=== PATIENT | female | born 1945 | race Hispanic/Latino ===

== ENCOUNTER 2016-11-25 09:19 | Observation (INO) | payer MEDICARE, OTHER ==
[2016-11-25] MEDS ORDERED: Iohexol 240 (50 ml) PO ONE (09:35)
[2016-11-25] MEDS ORDERED: Sodium Chloride 0.9% 500 ML IV ONE (09:38)
--- NOTE | 2016-11-25 09:42 | ED PDOC ---
HPI: Abdomen Time Seen by Provider: 11/25/16 09:26 Chief Complaint (Nursing): Abdominal Pain History Per: Patient History/Exam Limitations: no limitations Onset/Duration Of Symptoms: Days (2), Gradual Current Symptoms Are (Timing): Still Present Severity: Moderate Location Of Pain/Discomfort: Diffuse Quality Of Discomfort: Dull, Aching Associated Symptoms: Fever, Chills, Nausea, Vomiting. denies: Diarrhea, Back Pain, Chest Pain, Constipation, Urinary Symptoms Exacerbating Factors: None Alleviating Factors: None Additional History Per: Patient Additional Complaint(s): no travel or sick contacts Past Medical History Reviewed: Historical Data, Nursing Documentation, Vital Signs Vital Signs: Last Vital Signs Temp 100.1 F H 11/25/16 17:05 Pulse 85 11/25/16 17:05 Resp 16 11/25/16 17:05 BP 128/51 L 11/25/16 17:05 Pulse Ox 96 11/25/16 17:05 - Medical History PMH: Bipolar Disorder Denies: Diabetes, HTN, Hypercholesterolemia - Family History Family History: States: Unknown Family Hx - Living Arrangements Living Arrangements: With Family - Social History Current smoker - smoking cessation education provided: No - Home Medications Home Medications: Ambulatory Orders Medication Instructions Recorded No Known Home Med 11/25/16 - Allergies Allergies/Adverse Reactions: Allergies Allergy/AdvReac Type Severity Reaction Status Date / Time No Known Allergies Allergy Verified 01/29/16 08:26 Review of Systems ROS Statement: Except As Marked, All Systems Reviewed And Found Negative Constitutional: Positive for: Fever Cardiovascular: Negative for: Chest Pain, Palpitations Respiratory: Negative for: Cough, Shortness of Breath Gastrointestinal: Positive for: Nausea, Vomiting, Abdominal Pain. Negative for : Diarrhea Genitourinary Female: Negative for: Dysuria Musculoskeletal: Negative for: Neck Pain Skin: Negative for: Rash Neurological: Negative for: Weakness, Numbness Physical Exam - Reviewed Nursing Documentation Reviewed: Yes Vital Signs Reviewed: Yes - Physical Exam Appears: Positive for: Well, Uncomfortable Head Exam: Positive for: ATRAUMATIC, NORMAL INSPECTION, NORMOCEPHALIC Skin: Positive for: Normal Color, Warm, Dry. Negative for: Rash Eye Exam: Positive for: Normal appearance, EOMI, PERRL ENT: Positive for: Pharynx Is (clear,mmm) Neck: Positive for: Normal, Painless ROM, Supple Cardiovascular/Chest: Positive for: Regular Rate, Rhythm, Chest Non Tender. Negative for: Edema, Gallop, Murmur, Bradycardia, Tachycardia Respiratory: Positive for: Normal Breath Sounds. Negative for: Decreased Breath Sounds, Accessory Muscle Use, Crackles, Rales, Rhonchi, Stridor, Wheezing Pulses-Radial (L): 2+ Pulses-Radial (R): 2+ Gastrointestinal/Abdominal: Positive for: Normal Exam, Bowel Sounds, Soft. Negative for: Tenderness Back: Positive for: Normal Inspection. Negative for: L CVA Tenderness, R CVA Tenderness Extremity: Positive for: Normal ROM. Negative for: Tenderness, Pedal Edema Neurologic/Psych: Positive for: Alert, manager environmental health II-XII, Oriented. Negative for: Motor/Sensory Deficits - Laboratory Results Result Diagrams: 11/25/16 10:10 11/25/16 10:10 - ECG ECG: Positive for: Interpreted By Me ECG Rhythm: Positive for: Normal QRS, Normal ST Segment, Sinus Rhythm, ST/T Changes (mild in v3) O2 Sat by Pulse Oximetry: 98 Pulse Ox Interpretation: Normal - Radiology X-Ray: Interpreted by Me X-Ray Interpretation: No Acute Disease - Progress ED Course And Treament: ct scan unremarkable pt still frost nausea will admit for intractable vomiting likely viral as no source for fever Re-evaluation Time: 18:10 Condition: Unchanged Disposition - Clinical Impression Clinical Impression: Gastroenteritis, Intractable vomiting with nausea - Patient ED Disposition Is Patient to be Admitted: Yes Counseled Patient/Family Regarding: Studies Performed, Diagnosis, Need For Followup - Disposition Disposition Time: 18:11 Condition: STABLE - Pt Status Changed To: Hospital Disposition Of: Observation - POA Present On Arrival: None
[2016-11-25] MEDS ORDERED: Iohexol 240 (50 ml) ONE (10:19)
[2016-11-25 10:31] LABS: BASO % 0.2 % (0.0-2.0); HEMATOCRIT 42.2 % (34.0-47.0); LYMPH # 0.5 K/uL (1.0-4.3); LYMPH % 3.2 % (20.0-40.0); MEAN CORPUSCULAR HEMOGLOBIN 29.8 pg (27.0-31.0); MEAN CORPUSCULAR HGB CONC 33.5 g/dL (33.0-37.0); MEAN PLATELET VOLUME 9.4 fl (7.2-11.7); MONO # 1.4 K/uL (0.0-0.8); MONO % 9.1 % (0.0-10.0); NEUT # 13.2 K/uL (1.8-7.0); NEUT % 87.5 % (50.0-75.0); NRBC % 0.1 % (0.0-0.0); PLATELET COUNT 159 K/uL (130-400); RED CELL DISTRIBUTION WIDTH 13.7 % (11.5-14.5)
[2016-11-25 10:56] LABS: ALKALINE PHOSPHATASE 88 U/L (38-126); ALT/SGPT 30 U/L (9-52); AMYLASE 107 U/L (30-110); AST/SGOT 21 U/L (14-36); BLOOD UREA NITROGEN 12 mg/dl (7-17); CALCIUM 8.6 mg/dL (8.4-10.2); CARBON DIOXIDE 28 mmol/L (22-30); CHLORIDE 101 mmol/L (98-107); GFR AFRICAN-AMERICAN > 60; GLUCOSE,RANDOM 116 mg/dL (65-105); LIPASE 68 U/L (23-300); POTASSIUM 3.2 MMOL/L (3.6-5.0); SODIUM 143 mmol/l (132-148); TOTAL PROTEIN 6.9 G/DL (6.3-8.2)
[2016-11-25 12:01] LABS: NEUTROPHIL 89 % (42-75); TOTAL CELLS COUNTED 100
--- NOTE | 2016-11-25 12:11 | RAD ---
HISTORY: fever COMPARISON: Thoracic and lumbar radiographs performed 11/15/14 TECHNIQUE: Chest, one view. FINDINGS: Examination limited by habitus. LUNGS: No focal consolidation. Please note that chest x-ray has limited sensitivity for the detection of pulmonary masses. PLEURA: No significant pleural effusion identified. No definite pneumothorax . CARDIOVASCULAR: Heart size appears top normal. Prominence of the mediastinum of uncertain etiology ; considerations include tortuous vasculature exaggerated by patient obliquity, however alternatives including adenopathy are not excluded. OSSEOUS STRUCTURES: No acute osseous abnormality identified. VISUALIZED UPPER ABDOMEN: Unremarkable. OTHER FINDINGS: None. IMPRESSION: No focal consolidation, significant pleural effusion, or definite pneumothorax identified. Prominent mediastinum as above. Case discussed with Dr. Watters on 11/25/16 at 12:08 p.m..
[2016-11-25 13:50] LABS: RBC URINE 3 /hpf (0-3); URINE BACTERIA OCC (<OCC); URINE BILIRUBIN NEGATIVE (NEGATIVE); URINE BLOOD NEGATIVE (NEGATIVE); URINE COLOR AMBER (YELLOW); URINE GLUCOSE (UA) NEG (Normal); URINE KETONE NEGATIVE (NEGATIVE); URINE LEUKOCYTE ESTERASE NEG Leu/uL (Negative); URINE PROTEIN 30 mg/dL (NEGATIVE); WBC URINE 2 /hpf (0-5)
[2016-11-25] MEDS ORDERED: Sodium Chloride 0.9% 50 ML IV ONE (14:07)
[2016-11-25] MEDS ORDERED: Iodixanol 320 MG/ML 100 ML BOTTLE IV ONE (14:07)
--- NOTE | 2016-11-25 15:08 | CT ---
CT chest, abdomen, and pelvis with IV contrast Indication: Chest pain, rule out dissection Technique: Contiguous axial images of the chest, abdomen, and pelvis. Coronal and Sagittal reformats generated and reviewed. This CT exam was performed using 1 or more of the following dose reduction techniques: Automated exposure control, adjustment of the MAA and/or kV according to patient size, and/or use of iterative reconstruction technique. Oral contrast was administered. 95 mL Visipaque 320 Radiation dose: Total exam DLP = 1245.63 MGy-cm. Comparison: Chest x-ray performed the same day. Findings: Visualized portions of the inferior thyroid gland appear unremarkable. The mediastinal and hilar vascular structures appear within normal limits. The heart appears within normal limits of size. Minimal scattered atelectasis. No focal consolidation. No pleural effusion. No pneumothorax. No suspicious pulmonary nodules measuring greater than 5 mm. Small to moderate hiatal hernia. Cholecystectomy. Hypoattenuation of the liver compatible with hepatic steatosis. The kidneys enhance symmetrically. No hydronephrosis or obstructing calculus identified. The spleen, pancreas, and adrenal glands appear unremarkable. The stomach is nondistended. The bowel loops appear within normal limits of caliber without evidence of intestinal obstruction. Diverticulosis without CT evidence of acute diverticulitis. There is no definite free air. Small fat containing umbilical hernia. Osseous demineralization. Degenerative changes. Impression: Small to moderate hiatal hernia. Diverticulosis without CT evidence of acute diverticulitis. Hepatic steatosis. Cholecystectomy.
--- NOTE | 2016-11-25 16:09 | CARD ---
APPROVED REPORT EKG Measurement Heart [id number] <Conclusion> Normal sinus rhythm Nonspecific ST and T wave abnormality Abnormal ECG
[2016-11-25] MEDS: Enoxaparin 40 mg Syringe SC SCH (20:50)
--- NOTE | 2016-11-25 22:38 | CP.PCM.HP ---
History of Present Illness - History of Present Illness History of Present Illness: Hospitalist Admission H&P (Patient was seen at 6:15 PM 11/25/16 ER Bed #22) PMD: Dr. Ayala CODE STATUS: FULL CODE. NO advance directive/living will. Designates her Ede [phone] as her Health Care Proxy. CHIEF COMPLAINT: Nausea and vomiting with adominal pain 71 year old female who presents today to [facility] ER with complaints of Nausea/ Vomiting and Abdominal Pain. Yesterday afternoon roughly 4 hours after having lasagna followed by ceasar cake (which consisted of a cake with hard boiled eggs hidden inside) she started to experience nausea but no vomiting. This persisted throughout the night and prevented her from getting any sleep. Then at 7 AM this morning the nausea was at its worse and she vomited up yellow material. Because of this she had her call EMS. While waiting for EMS to arrive, she vomited up yellow material again that was followed by generalized abdominal pain that she described as burning sensation associated with dizziness. Currently she is still (+) Nauseous despite being given Zofran in the ER, (+) Dizziness described as an unsteadiness on her feet, NO abdominal pain, NO chest pain, NO palpitations, NO SOB/Cough/Wheezing, NO d/c, NO burning/pain with urination, (+) Soreness in the throat from vomiting, NO dysphagia/odynophagia, NO headaches, NO new changes in vision/eye pain/loss of vision, NO new changes in hearing/ear pain/tinnitus, NO rashes, (+) Edema: she states that she has chronic edema of the bilateral legs for which she takes Lasix, NO recent travel , NO sick contacts PMHx: Chronic Leg Edema PSHx: Right Foot Hammer Toe Surgery ALL: NKDA or Food Allergeis Medications: Lasix 20 mg PO every other day for the Chronic Leg Edema Social Hx: Retired Lunch Lady, NO tobacco, NO alcohol, NO illicit drugs Family Hx: Mom (DM 2), Dad (Unspecified [place]), Sister (DM 2) Present on Admission - Present on Admission Any Indicators Present on Admission: Yes History of DVT/PE: No History of Uncontrolled Diabetes: No Urinary Catheter: No Decubitus Ulcer Present: No Review of Systems - Review of Systems Review of Systems: SEE HPI Past Patient History - Past Medical History & Family History Pertinent Family History: SEE HPI - Past Social History Smoking Status: Never Smoked - CARDIAC Hx Hypercholesterolemia: No Hx Hypertension: No - PSYCHIATRIC Hx Psychophysiologic Disorder: Yes - SURGICAL HISTORY Other/Comment: rt foot sx for hammer toes - ANESTHESIA Hx Anesthesia: Yes Hx Anesthesia Reactions: No Meds Allergies/Adverse Reactions: Allergies Allergy/AdvReac Type Severity Reaction Status Date / Time No Known Allergies Allergy Verified 01/29/16 08:26 Physical Exam - Constitutional Appears: Non-toxic, No Acute Distress - Head Exam Head Exam: ATRAUMATIC, NORMAL INSPECTION, NORMOCEPHALIC - Eye Exam Eye Exam: EOMI, Normal appearance, PERRL Pupil Exam: NORMAL ACCOMODATION, PERRL - ENT Exam ENT Exam: Mucous Membranes Moist, Normal Exam, Normal External Ear Exam, Normal Oropharynx - Neck Exam Neck exam: Positive for: Normal Inspection Additional comments: NO LYMPHADENOPATHY NO THYROMEGALY - Respiratory Exam Respiratory Exam: Clear to Auscultation Bilateral, NORMAL BREATHING PATTERN Additional comments: NO R/R/W - Cardiovascular Exam Cardiovascular Exam: REGULAR RHYTHM, +S1, +S2 Additional comments: NO M/R/G - GI/Abdominal Exam Additional comments: BS X 4, SOFT, NT, CENTRAL OBESITY, NO HSM, NO GUARDING/REBOUND TENDERNESS - Extremities Exam Additional comments: PULSES ARE STRONG AND EQUAL CAPILLARY REFILL IS 2 SECONDS NONPITTING EDEMA OF THE FEET AND LEGS BILATERALY FEET ONYCHOMYCOSIS/MALODOROUS - Neurological Exam Neurological exam: Alert, CN II-XII Intact, Oriented x3 - Psychiatric Exam Psychiatric exam: Normal Affect, Normal Mood Results - Vital Signs Recent Vital Signs: Last Vital Signs Temp 98.5 F 11/25/16 22:07 Pulse 79 11/25/16 22:07 Resp 20 11/25/16 22:07 BP 100/63 11/25/16 22:07 Pulse Ox 98 11/25/16 22:07 - Labs Result Diagrams: 11/25/16 10:10 11/25/16 10:10 Assessment & Plan (1) Intractable vomiting with nausea Assessment and Plan: Place on observation in the medical/surgical unit Zofran 4 mg IV Q6H PRN N/V Clear Liquids tonight Full Liquids for breakfast 11/26/16 Regular Diet for lunch 11/26/16 Protonix 40 mg IV 1x/day Discharge to home if tolerates Regular Diet for lunch 11/26/16 CT Abdomen/Pelvis/Chest 11/25/16: Small to moderate hiatal hernia, diverticulosis without CT evidence of diverticulitis, Hepatic Steatosis CXR 11/25/16: NO active disease with prominent mediastinum EKG 11/25/16: NSR at 84 bpm Status: Acute (2) Chronic edema Assessment and Plan: Lasix 20 mg PO once every other day Status: Chronic (3) Hepatic steatosis Assessment and Plan: Dietary Consult for low fat diet Status: Chronic (4) Prophylactic measure Assessment and Plan: Protonix 40 mg IV 1x/day Lovenox 40 mg SQ 1x/day Status: Acute
[2016-11-25] MEDS ORDERED: Potassium Chloride 20 mEq ER Tab PO ONE (22:49)
[2016-11-26 05:37] LABS: BASO # 0.1 K/uL (0.0-0.2); BASO % 0.5 % (0.0-2.0); EOS % 0.1 % (0.0-4.0); HEMATOCRIT 40.4 % (34.0-47.0); LYMPH % 4.9 % (20.0-40.0); MEAN CELL VOLUME 89.7 fl (81.0-99.0); MEAN CORPUSCULAR HEMOGLOBIN 30.2 pg (27.0-31.0); MEAN CORPUSCULAR HGB CONC 33.7 g/dL (33.0-37.0); MEAN PLATELET VOLUME 10.1 fl (7.2-11.7); MONO % 9.8 % (0.0-10.0); NEUT # 17.5 K/uL (1.8-7.0); NEUT % 84.7 % (50.0-75.0); RED CELL DISTRIBUTION WIDTH 13.8 % (11.5-14.5); WHITE BLOOD COUNT 20.7 K/uL (4.8-10.8)
[2016-11-26 05:51] LABS: ALB/GLOB RATIO 0.9 (1.0-2.1); ALKALINE PHOSPHATASE 89 U/L (38-126); ALT/SGPT 21 U/L (9-52); AST/SGOT 23 U/L (14-36); BILIRUBIN,TOTAL 1.2 mg/dl (0.2-1.3); BLOOD UREA NITROGEN 12 mg/dl (7-17); CALCIUM 8.5 mg/dL (8.4-10.2); CARBON DIOXIDE 28 mmol/L (22-30); CHLORIDE 101 mmol/L (98-107); GFR AFRICAN-AMERICAN > 60; GLUCOSE,RANDOM 105 mg/dL (65-105); MAGNESIUM 2.1 MG/DL (1.6-2.3); PHOSPHOROUS 3.1 mg/dl (2.5-4.5); POTASSIUM 3.4 MMOL/L (3.6-5.0); SODIUM 141 mmol/l (132-148); TOTAL PROTEIN 6.4 G/DL (6.3-8.2)
[2016-11-26] MEDS: Enoxaparin 40 mg Syringe SC SCH (09:54)
[2016-11-26] MEDS: metroNIDAZOLE 500mg/100ml NS 100 ML IVPB SCH ×2 (10:00→17:41)
[2016-11-26] MEDS: Potassium CL 10mEq/100ml 100 ML IVPB SCH ×2 (10:00→11:17)
[2016-11-26] MEDS: Ciprofloxacin 400mg/200ml D5W 200 ML IVPB SCH ×2 (10:01→20:59)
--- NOTE | 2016-11-26 13:12 | CP.PCM.PN ---
Subjective - Date & Time of Evaluation Date of Evaluation: 11/26/16 Time of Evaluation: 13:00 - Subjective Subjective: Pt was febrile last night no N/V however started having diarrhea no CP no SOB no abd pain Objective - Vital Signs/Intake and Output Vital Signs (last 24 hours): Temp Pulse Resp BP Pulse Ox 98.6 F 77 20 128/73 94 L 11/26/16 08:22 11/26/16 08:22 11/26/16 08:22 11/26/16 09:54 11/26/16 08:22 - Medications Medications: Current Medications Acetaminophen (Tylenol 325mg Tab) 650 mg PO Q6 PRN PRN Reason: Fever >100.4 F Last Admin: 11/25/16 20:50 Dose: 650 mg Enoxaparin Sodium (Lovenox) 40 mg SC DAILY [facility] PRN Reason: Protocol Last Admin: 11/26/16 09:54 Dose: 40 mg Furosemide (Lasix) 20 mg PO DAILY [facility] Last Admin: 11/26/16 09:54 Dose: 20 mg Ciprofloxacin (Cipro 400mg/200ml Dsw) 200 mls @ 200 mls/hr IVPB Q12 [facility] Last Admin: 11/26/16 10:01 Dose: 200 mls/hr Metronidazole (Flagyl 500mg/100ml Ns) 100 mls @ 100 mls/hr IVPB Q8 [facility] Last Admin: 11/26/16 10:00 Dose: 100 mls/hr Ondansetron HCl (Zofran Inj) 4 mg IVP Q6 PRN PRN Reason: Nausea/Vomiting Pantoprazole Sodium (Protonix Inj) 40 mg IVP DAILY [facility] Last Admin: 11/26/16 09:59 Dose: 40 mg - Constitutional Appears: No Acute Distress - Head Exam Head Exam: NORMAL INSPECTION, NORMOCEPHALIC - Eye Exam Eye Exam: Normal appearance Pupil Exam: NORMAL ACCOMODATION - ENT Exam ENT Exam: Mucous Membranes Moist, Normal External Ear Exam - Neck Exam Neck Exam: Full ROM. absent: Meningismus - Respiratory Exam Respiratory Exam: NORMAL BREATHING PATTERN. absent: Respiratory Distress - Cardiovascular Exam Cardiovascular Exam: REGULAR RHYTHM, +S1, +S2 - GI/Abdominal Exam GI & Abdominal Exam: Soft, Normal Bowel Sounds. absent: Tenderness - Extremities Exam Extremities Exam: Full ROM. absent: Calf Tenderness, Normal Capillary Refill, Pedal Edema - Back Exam Back Exam: absent: CVA tenderness (L), CVA tenderness (R), paraspinal tenderness , vertebral tenderness - Neurological Exam Neurological Exam: Alert, CN II-XII Intact, Oriented x3 - Psychiatric Exam Psychiatric exam: Normal Affect, Normal Mood - Skin Skin Exam: Dry, Normal Color, Warm Assessment and Plan - Assessment and Plan (Free Text) Assessment: 71 year old female who presented to [facility] ER with complaints of Nausea/Vomiting and Abdominal Pain roughly 4 hours after having lasagna followed by ceasar lacey. Now started having diarrhea (1) Intractable vomiting with nausea and Diarrhea pron Acute Gastroenteritis Assessment and Plan: will admit since pt now started with diarrhea , vomiting improved Zofran 4 mg IV Q6H PRN N/V Full Liquids for breakfast 11/26/16 Regular Diet for lunch 11/26/16 Protonix 40 mg IV 1x/day CT Abdomen/Pelvis/Chest 11/25/16: Small to moderate hiatal hernia, diverticulosis without CT evidence of diverticulitis, Hepatic Steatosis CXR 11/25/16: NO active disease with prominent mediastinum EKG 11/25/16: NSR at 84 bpm Stool c/s , C diff, WBC, O/O IVF hydration KCl for hypokalemia leukocytosis 20 K- start IV Cipro and Flagyl Status: Acute (2) Chronic edema Assessment and Plan: Lasix 20 mg PO once every other day Status: Chronic (3) Hepatic steatosis Assessment and Plan: Dietary Consult for low fat diet Status: Chronic (4) Prophylactic measure Assessment and Plan: Protonix 40 mg IV 1x/day Lovenox 40 mg SQ 1x/day Status: Acute 5. Hypokalemia - KCl in IV and PO
[2016-11-26] MEDS: Vancomycin 500 mg (Oral/Rectal USE) PO SCH (21:00)
[2016-11-26] MEDS: Benzocaine/Menthol (Cepacol) Lozenge PO PRN (21:52)
[2016-11-27] MEDS: Vancomycin 500 mg (Oral/Rectal USE) PO SCH ×3 (01:10→17:11)
[2016-11-27] MEDS: metroNIDAZOLE 500mg/100ml NS 100 ML IVPB SCH ×4 (01:12→23:59)
[2016-11-27 08:32] LABS: BASO # 0.1 K/uL (0.0-0.2); BASO % 0.4 % (0.0-2.0); EOS # 0.1 K/uL (0.0-0.7); EOS % 0.9 % (0.0-4.0); HEMATOCRIT 37.3 % (34.0-47.0); LYMPH # 0.9 K/uL (1.0-4.3); LYMPH % 6.2 % (20.0-40.0); MEAN CORPUSCULAR HEMOGLOBIN 30.4 pg (27.0-31.0); MEAN CORPUSCULAR HGB CONC 34.2 g/dL (33.0-37.0); MEAN PLATELET VOLUME 9.2 fl (7.2-11.7); MONO # 1.3 K/uL (0.0-0.8); NEUT # 12.6 K/uL (1.8-7.0); NEUT % 83.5 % (50.0-75.0); RED CELL DISTRIBUTION WIDTH 13.8 % (11.5-14.5); WHITE BLOOD COUNT 15.1 K/uL (4.8-10.8)
[2016-11-27 08:49] LABS: BLOOD UREA NITROGEN 8 mg/dl (7-17); CALCIUM 8.6 mg/dL (8.4-10.2); CARBON DIOXIDE 27 mmol/L (22-30); CHLORIDE 105 mmol/L (98-107); GFR AFRICAN-AMERICAN > 60; GLUCOSE,RANDOM 104 mg/dL (65-105); POTASSIUM 3.5 MMOL/L (3.6-5.0); SODIUM 144 mmol/l (132-148)
[2016-11-27] MEDS: Ciprofloxacin 400mg/200ml D5W 200 ML IVPB SCH ×2 (09:02→20:37)
[2016-11-27] MEDS: Enoxaparin 40 mg Syringe SC SCH (09:03)
--- NOTE | 2016-11-27 14:17 | CP.PCM.PN ---
Subjective - Date & Time of Evaluation Date of Evaluation: 11/27/16 Time of Evaluation: 13:30 - Subjective Subjective: No fever today no nausea /vonitng Had diarrhea this am but less than yesterday Tolerated Regular diet denies CP no SOB no abd pain Objective - Vital Signs/Intake and Output Vital Signs (last 24 hours): Temp Pulse Resp BP Pulse Ox 98.6 F 83 20 121/76 94 L 11/27/16 08:22 11/27/16 11:47 11/27/16 08:22 11/27/16 09:02 11/27/16 11:47 - Medications Medications: Current Medications Acetaminophen (Tylenol 325mg Tab) 650 mg PO Q6 PRN PRN Reason: Fever >100.4 F Last Admin: 11/25/16 20:50 Dose: 650 mg Benzocaine/Menthol (Cepacol Sore Throat) 1 reina PO Q2 PRN PRN Reason: Sore Throat Last Admin: 11/26/16 21:52 Dose: 1 reina Enoxaparin Sodium (Lovenox) 40 mg SC DAILY [facility] PRN Reason: Protocol Last Admin: 11/27/16 09:03 Dose: 40 mg Furosemide (Lasix) 20 mg PO DAILY [facility] Last Admin: 11/27/16 09:02 Dose: 20 mg Ciprofloxacin (Cipro 400mg/200ml Dsw) 200 mls @ 200 mls/hr IVPB Q12 [facility] Last Admin: 11/27/16 09:02 Dose: 200 mls/hr Metronidazole (Flagyl 500mg/100ml Ns) 100 mls @ 100 mls/hr IVPB Q8 [facility] Last Admin: 11/27/16 10:58 Dose: 100 mls/hr Ondansetron HCl (Zofran Inj) 4 mg IVP Q6 PRN PRN Reason: Nausea/Vomiting Pantoprazole Sodium (Protonix Inj) 40 mg IVP DAILY [facility] Last Admin: 11/27/16 09:04 Dose: 40 mg Vancomycin HCl (Vancocin (Oral/Rectal Use)) 125 mg PO Q8 [facility] Last Admin: 11/27/16 09:05 Dose: 125 mg - Labs Labs: 11/27/16 08:21 11/27/16 08:21 PE: - Constitutional Appears: No Acute Distress - Head Exam Head Exam: NORMAL INSPECTION, NORMOCEPHALIC - Eye Exam Eye Exam: Normal appearance Pupil Exam: NORMAL ACCOMODATION - ENT Exam ENT Exam: Mucous Membranes Moist, Normal External Ear Exam - Neck Exam Neck Exam: Full ROM. absent: Meningismus - Respiratory Exam Respiratory Exam: NORMAL BREATHING PATTERN. absent: Respiratory Distress - Cardiovascular Exam Cardiovascular Exam: REGULAR RHYTHM, +S1, +S2 - GI/Abdominal Exam GI & Abdominal Exam: Soft, Normal Bowel Sounds. absent: Tenderness - Extremities Exam Extremities Exam: Full ROM. absent: Calf Tenderness, Normal Capillary Refill, Pedal Edema - Back Exam Back Exam: absent: CVA tenderness (L), CVA tenderness (R), paraspinal tenderness , vertebral tenderness - Neurological Exam Neurological Exam: Alert, CN II-XII Intact, Oriented x3 - Psychiatric Exam Psychiatric exam: Normal Affect, Normal Mood - Skin Skin Exam: Dry, Normal Color, Warm Assessment and Plan - Assessment and Plan (Free Text) Assessment: 71 year old female who presented to [facility] ER with complaints of Nausea/Vomiting and Abdominal Pain roughly 4 hours after having lasagna followed by ceasar lacey. Started having fever and diarrhea on 11/26 (1) Intractable vomiting with nausea and Diarrhea prob Acute Gastroenteritis Still with diarrhea this am however N/V resolved Zofran 4 mg IV Q6H PRN N/V Full Liquids for breakfast 11/26/16 Regular Diet for lunch 11/26/16- tolerating PO diet Protonix 40 mg IV 1x/day CT Abdomen/Pelvis/Chest 11/25/16: Small to moderate hiatal hernia, diverticulosis without CT evidence of diverticulitis, Hepatic Steatosis CXR 11/25/16: NO active disease with prominent mediastinum EKG 11/25/16: NSR at 84 bpm Stool c/s : pending , C diff : negative, Stool, WBC : negative IVF hydration KCl for hypokalemia leukocytosis 20 K- started IV Cipro and Flagyl - WBC ct =15K today Status: Acute (2) Chronic edema Assessment and Plan: Lasix 20 mg PO once every other day Status: Chronic (3) Hepatic steatosis Assessment and Plan: Dietary Consult for low fat diet Status: Chronic (4) Prophylactic measure Assessment and Plan: Protonix 40 mg IV 1x/day Lovenox 40 mg SQ 1x/day Status: Acute 5. Hypokalemia - KCl in IV and PO
[2016-11-27] MEDS: Benzocaine/Menthol (Cepacol) Lozenge PO PRN (17:13)
[2016-11-28 07:31] LABS: BASO # 0.1 K/uL (0.0-0.2); BASO % 0.6 % (0.0-2.0); EOS # 0.3 K/uL (0.0-0.7); EOS % 3.6 % (0.0-4.0); HEMATOCRIT 37.2 % (34.0-47.0); LYMPH # 1.3 K/uL (1.0-4.3); LYMPH % 13.7 % (20.0-40.0); MEAN CELL VOLUME 89.2 fl (81.0-99.0); MEAN CORPUSCULAR HEMOGLOBIN 30.1 pg (27.0-31.0); MEAN CORPUSCULAR HGB CONC 33.7 g/dL (33.0-37.0); MEAN PLATELET VOLUME 9.9 fl (7.2-11.7); MONO % 10.7 % (0.0-10.0); NEUT # 6.8 K/uL (1.8-7.0); NEUT % 71.4 % (50.0-75.0); RED CELL DISTRIBUTION WIDTH 13.8 % (11.5-14.5); WHITE BLOOD COUNT 9.6 K/uL (4.8-10.8)
[2016-11-28 07:34] LABS: BLOOD UREA NITROGEN 9 mg/dl (7-17); CALCIUM 8.2 mg/dL (8.4-10.2); CARBON DIOXIDE 24 mmol/L (22-30); CHLORIDE 107 mmol/L (98-107); GFR AFRICAN-AMERICAN > 60; GLUCOSE,RANDOM 90 mg/dL (65-105); POTASSIUM 3.3 MMOL/L (3.6-5.0); SODIUM 144 mmol/l (132-148)
[2016-11-28 08:13] VITALS: RESP 20
[2016-11-28] MEDS: metroNIDAZOLE 500mg/100ml NS 100 ML IVPB SCH (08:52)
[2016-11-28] MEDS: Enoxaparin 40 mg Syringe SC SCH (08:53)
[2016-11-28] MEDS: Vancomycin 500 mg (Oral/Rectal USE) PO SCH ×2 (08:54)
[2016-11-28] MEDS: Ciprofloxacin 400mg/200ml D5W 200 ML IVPB SCH (10:07)
--- NOTE | 2016-11-28 14:58 | CP.PCM.DIS ---
Provider - Provider Date of Admission: 11/26/16 11:41 Attending physician: Donny Bran MD Primary care physician: Dr. Ayala Consults: None Time Spent in preparation of Discharge (in minutes): 40 Diagnosis - Discharge Diagnosis (1) Intractable vomiting with nausea Status: Acute (2) Chronic edema Status: Chronic (3) Hepatic steatosis Status: Chronic (4) Prophylactic measure Status: Acute Hospital Course - Lab Results Lab Results: Most Recent Lab Values WBC 9.6 K/uL (4.8-10.8) 11/28/16 06:44 RBC 4.17 Mil/uL (3.80-5.20) 11/28/16 06:44 Hgb 12.5 g/dL (12.0-16.0) 11/28/16 06:44 Hct 37.2 % (34.0-47.0) 11/28/16 06:44 MCV 89.2 fl (81.0-99.0) 11/28/16 06:44 MCH 30.1 pg (27.0-31.0) 11/28/16 06:44 MCHC 33.7 g/dL (33.0-37.0) 11/28/16 06:44 RDW 13.8 % (11.5-14.5) 11/28/16 06:44 Plt Count 172 K/uL (130-400) 11/28/16 06:44 MPV 9.9 fl (7.2-11.7) 11/28/16 06:44 Neut % (Auto) 71.4 % (50.0-75.0) 11/28/16 06:44 Lymph % (Auto) 13.7 % (20.0-40.0) L 11/28/16 06:44 Roane % (Auto) 10.7 % (0.0-10.0) H 11/28/16 06:44 Eos % (Auto) 3.6 % (0.0-4.0) 11/28/16 06:44 Baso % (Auto) 0.6 % (0.0-2.0) 11/28/16 06:44 Neut # 6.8 K/uL (1.8-7.0) 11/28/16 06:44 Lymph # 1.3 K/uL (1.0-4.3) 11/28/16 06:44 Roane # 1.0 K/uL (0.0-0.8) H 11/28/16 06:44 Eos # 0.3 K/uL (0.0-0.7) 11/28/16 06:44 Baso # 0.1 K/uL (0.0-0.2) 11/28/16 06:44 Neutrophils % (Manual) 89 % (42-75) H 11/25/16 10:10 Band Neutrophils % 2 % (0-2) 11/25/16 10:10 Lymphocytes % (Manual) 1 % (20-50) L 11/25/16 10:10 Monocytes % (Manual) 8 % (0-10) 11/25/16 10:10 Platelet Estimate Normal (NORMAL) 11/25/16 10:10 RBC Morphology Normal (NORMAL) 11/25/16 10:10 Sodium 144 mmol/l (132-148) 11/28/16 06:44 Potassium 3.3 MMOL/L (3.6-5.0) L 11/28/16 06:44 Chloride 107 mmol/L (98-107) 11/28/16 06:44 Carbon Dioxide 24 mmol/L (22-30) 11/28/16 06:44 Anion Gap 16 (10-20) 11/28/16 06:44 BUN 9 mg/dl (7-17) 11/28/16 06:44 Creatinine 0.6 mg/dL (0.7-1.2) L 11/28/16 06:44 Est GFR ( Amer) > 60 11/28/16 06:44 Est GFR (Non-Af Amer) > 60 11/28/16 06:44 Random Glucose 90 mg/dL (65-105) 11/28/16 06:44 Calcium 8.2 mg/dL (8.4-10.2) L 11/28/16 06:44 Phosphorus 3.1 mg/dl (2.5-4.5) 11/26/16 04:35 Magnesium 2.1 MG/DL (1.6-2.3) 11/26/16 04:35 Total Bilirubin 1.2 mg/dl (0.2-1.3) 11/26/16 04:35 AST 23 U/L (14-36) 11/26/16 04:35 ALT 21 U/L (9-52) 11/26/16 04:35 Alkaline Phosphatase 89 U/L (38-126) 11/26/16 04:35 Troponin I < 0.0120 ng/mL (0.00-0.120) 11/25/16 10:10 Total Protein 6.4 G/DL (6.3-8.2) 11/26/16 04:35 Albumin 3.1 g/dL (3.5-5.0) L 11/26/16 04:35 Globulin 3.3 gm/dL (2.2-3.9) 11/26/16 04:35 Albumin/Globulin Ratio 0.9 (1.0-2.1) L 11/26/16 04:35 Amylase 107 U/L (30-110) 11/25/16 10:10 Lipase 68 U/L (23-300) 11/25/16 10:10 Urine Color Shannan (YELLOW) 11/25/16 13:35 Urine Clarity Slighty-cloudy (Clear) 11/25/16 13:35 Urine pH 5.0 (5.0-8.0) 11/25/16 13:35 Ur Specific [employer] 1.023 (1.003-1.030) 11/25/16 13:35 Urine Protein 30 mg/dL (NEGATIVE) 11/25/16 13:35 Urine Glucose (UA) Neg mg/dL (Normal) 11/25/16 13:35 Urine Ketones Negative mg/dL (NEGATIVE) 11/25/16 13:35 Urine Blood Negative (NEGATIVE) 11/25/16 13:35 Urine Nitrate Negative (NEGATIVE) 11/25/16 13:35 Urine Bilirubin Negative (NEGATIVE) 11/25/16 13:35 Urine Urobilinogen 2.0 mg/dL (0.2-1.0) H 11/25/16 13:35 Ur Leukocyte Esterase Neg Cary/uL (Negative) 11/25/16 13:35 Urine RBC (Auto) 3 /hpf (0-3) 11/25/16 13:35 Urine Microscopic WBC 2 /hpf (0-5) 11/25/16 13:35 Ur Squamous Epith Cells 1 /hpf (0-5) 11/25/16 13:35 Urine Bacteria Occ (<OCC) H 11/25/16 13:35 Stool Leukocytes, Qual Negative (NEGATIVE) 11/26/16 14:22 C. difficile Ag & Toxin Negative (NEGATIVE) 11/27/16 23:00 Influenza Typ A,B (EIA) Negative for flu a/b (NEGATIVE) 11/25/16 10:20 - Hospital Course Hospital Course: 71 year old female who presented 11/25/16 to [facility] ER with complaints of Nausea/ Vomiting and Abdominal Pain. On 11/24/16 afternoon roughly 4 hours after having lasagna followed by eastranda cake (which consisted of a cake with hard boiled eggs hidden inside) she started to experience nausea but no vomiting. This persisted throughout the night and prevented her from getting any sleep. Then at 7 AM 11/25/16 morning the nausea was at its worse and she vomited up yellow material. Because of this she had her call EMS. While waiting for EMS to arrive, she vomited up yellow material again that was followed by generalized abdominal pain that she described as burning sensation associated with dizziness. She developed some diarrhea and fever during her admission. CT Abdomen/Pelvis/Chest did not show any acute pathology (hiatal hernia, diverticulosis, hepatic steatosis). Chest X ray did NO show any active disease. Blood Culture 11/25/16 is negative to date. Urine Culture 11/25/16 showed NO growth. C. diff toxin is negative. Stool Cultures/Ova and Parasite are pending. Her last fever was on 11/26/18 at 4:52 PM and has been fever free since then. She has tolerated regular diet without n/v. She still has some diarrhea with two episodes this morning that were nonbloody/nonblack. She able to take oral hydration. Vitals are stable. She stable for discharge to home to follow BRAT diet and follow up with her PMD Dr. Ayala Currently she is still Nausea and Dizziness has resolved, NO abdominal pain, NO chest pain, NO palpitations, NO SOB/Cough/Wheezing, NO d/c, NO burning/pain with urination, Soreness in the throat from vomiting has resolved, NO dysphagia/ odynophagia, NO headaches, NO new changes in vision/eye pain/loss of vision, NO new changes in hearing/ear pain/tinnitus, NO rashes, (+) Edema: she states that she has chronic edema of the bilateral legs for which she takes Lasix, Physical Exam - Constitutional Appears: Non-toxic, No Acute Distress - Head Exam Head Exam: ATRAUMATIC, NORMAL INSPECTION, NORMOCEPHALIC - Eye Exam Eye Exam: EOMI, Normal appearance, PERRL Pupil Exam: NORMAL ACCOMODATION, PERRL - ENT Exam ENT Exam: Mucous Membranes Moist, Normal Exam, Normal External Ear Exam, Normal Oropharynx - Neck Exam Neck exam: Positive for: Normal Inspection Additional comments: NO LYMPHADENOPATHY NO THYROMEGALY - Respiratory Exam Respiratory Exam: Clear to Auscultation Bilateral, NORMAL BREATHING PATTERN Additional comments: NO R/R/W - Cardiovascular Exam Cardiovascular Exam: REGULAR RHYTHM, +S1, +S2 Additional comments: NO M/R/G - GI/Abdominal Exam Additional comments: BS X 4, SOFT, NT, CENTRAL OBESITY, NO HSM, NO GUARDING/REBOUND TENDERNESS - Extremities Exam Additional comments: PULSES ARE STRONG AND EQUAL CAPILLARY REFILL IS 2 SECONDS NONPITTING EDEMA OF THE FEET AND LEGS BILATERALY FEET ONYCHOMYCOSIS/MALODOROUS - Neurological Exam Neurological exam: Alert, CN II-XII Intact, Oriented x3 - Psychiatric Exam Psychiatric exam: Normal Affect, Normal Mood Assessment and Plan: 1). Intractable Nausea/Vomiting Resolved 2). Leukocytosis Resolved Likely reactive 3). Hepatic Steatosis Will need to follow up with PMD Dr. Ayala for weight loss management 4). Chronic Leg Edema She stated that she had enough of the Lasix 20 mg PO every other day at home The following instructions were explained to the patient with present and copy of this discharge summary will be provided to her: 1). Follow a BRAT diet: bannanas, white rice, apple sauce, and toast until your bowel movements become more well formed. 2). Once your stools/bowel movements are well formed with BRAT diet, advance your diet slowly. 3). Practice good hand hygiene 4). Drink plenty of fluids 5). Follow up with your Primary Care Physician Dr. Ayala in the next 5 to 7 days. You will need to follow up the blood and stool cultures that were done for you at the hospital through Dr. Ayala's office. 6). Continue the Lasix as instructed by Dr. Ayala. Donny Bran D.O. Discharge Exam - Head Exam Head Exam: NORMAL INSPECTION, NORMOCEPHALIC Discharge Plan - Follow Up Plan Condition: STABLE Disposition: HOME/ ROUTINE
[2016-11-28 16:16] VITALS: BP 125/80; PULSE 71; TEMP 98.5; O2SAT 95
== END 2016-11-28 16:46 | disposition home health service (06) ==
LOC: H.ER 09:19 → H.ERHOLD 18:06 → H.MEDSURG1 21:50 → INTOOBSV 11-26 11:41 → OBSVTOIN 11-26 11:41 → H.MEDSURG1 11-26 15:11
PROVIDERS: ADMIT Family Medicine; ATTEND Family Medicine
DX: K52.89 Other specified noninfective gastroenteritis and colitis (principal); K76.0 Fatty (change of) liver, not elsewhere classified; E87.6 Hypokalemia; D72.828 Other elevated white blood cell count; B35.1 Tinea unguium; Q82.0 Hereditary lymphedema; E66.9 Obesity, unspecified; K57.30 Diverticulosis of large intestine without perforation or abscess without bleeding; K44.9 Diaphragmatic hernia without obstruction or gangrene; Z68.32 Body mass index [BMI] 32.0-32.9, adult; F31.9 Bipolar disorder, unspecified
CPT/HCPCS: 36415; 71010; 71270; 74175; 80048; 80053; 81003; 82150; 83690; 83735; 84100; 84484; 85025; 87040; 87045; 87086; 87177; 87209; 87230; 87804; 89055; 93005; 96361; 96365; 96366; 96368; 96372; 96375; 97161; 99283; C9113; G0378; G8978; G8979; J0744; J1650; J2270; J2405; J3480; J7040; Q9966; Q9967

== ENCOUNTER 2017-07-05 10:38 | Emergency (ER) | payer MEDICARE, OTHER ==
[2017-07-05 10:41] VITALS: BMI 30.1
[2017-07-05 10:43] VITALS: BP 147/74; PULSE 87; RESP 17; TEMP 97.5; O2SAT 99
--- NOTE | 2017-07-05 11:59 | ED PDOC ---
HPI: General Adult Time Seen by Provider: 07/05/17 10:58 Chief Complaint (Nursing): Trauma History Per: Patient Additional Complaint(s): Pt. states on she tripped going up a curb falling on her R side striking the R side of her face on the pavement. Pt. states she did not lose consciousness. Pt. did not want to come to the hospital but today was having a headache and pain to the nose. Took Advil [employer] without much relief. Denies LOC, neck pain, numbness, tingling, limb injury, N/V, fever, chest pain, abdominal pain. Past Medical History Reviewed: Historical Data, Nursing Documentation, Vital Signs Vital Signs: Last Vital Signs Temp 97.5 F L 07/05/17 10:41 Pulse 87 07/05/17 10:41 Resp 17 07/05/17 10:41 BP 147/74 07/05/17 10:41 Pulse Ox 99 07/05/17 11:59 - Medical History PMH: Denies: Anxiety, Bipolar Disorder, Depression, Diabetes, HTN, Hypercholesterolemia, Paranoia, Post Traumatic Stress Disorder, Chronic Kidney Disease, Schizophrenia - Family History Family History: States: Unknown Family Hx - Home Medications Home Medications: Ambulatory Orders Medication Instructions Recorded Furosemide [Lasix] 20 mg PO DAILY tab 11/28/16 - Allergies Allergies/Adverse Reactions: Allergies Allergy/AdvReac Type Severity Reaction Status Date / Time No Known Allergies Allergy Verified 01/29/16 08:26 Review of Systems ROS Statement: Except As Marked, All Systems Reviewed And Found Negative Physical Exam - Physical Exam Appears: Positive for: Well, Non-toxic, No Acute Distress Head Exam: Positive for: ATRAUMATIC, NORMAL INSPECTION, NORMOCEPHALIC Skin: Positive for: Normal Color, Warm. Negative for: Rash Eye Exam: Positive for: Normal appearance, EOMI, PERRL, Other (mild ecchymosis on R upper eyelid without swelling or tenderness). Negative for: Periorbital swelling, Periorbital tenderness ENT: Positive for: Normal ENT Inspection, TM Is/Are (no hemotympanum b/l) Neck: Positive for: Normal, Painless ROM Cardiovascular/Chest: Positive for: Regular Rate, Rhythm, Chest Non Tender Respiratory: Positive for: CNT, Normal Breath Sounds Gastrointestinal/Abdominal: Positive for: Normal Exam, Bowel Sounds, Soft. Negative for: Tenderness Back: Positive for: Normal Inspection. Negative for: L CVA Tenderness, R CVA Tenderness, Vertebral Tenderness (no cervical spine tenderness) Extremity: Positive for: Normal ROM Neurologic/Psych: Positive for: Alert, Oriented. Negative for: Aphasia, Facial Droop - ECG O2 Sat by Pulse Oximetry: 99 - CT Scan/US CT head, maxillofacial w/o contrast Other Rad Studies (CT/US): Read By Radiologist (negative) - Progress ED Course And Treament: CT head, CT maxillofacial without contrast ordered. Tylenol 650mg PO ordered. Disposition - Clinical Impression Clinical Impression: Head injury, Facial contusion - Patient ED Disposition Is Patient to be Admitted: No - Disposition Disposition: Routine/Home Disposition Time: 12:20 Condition: STABLE Additional Instructions: Follow up with PMD for further evaluation. Take Tylenol at home for pain. Instructions: Head Injury (ED), Facial Contusion (ED) Forms: [facility] (Yakut)
--- NOTE | 2017-07-05 12:17 | CT ---
PROCEDURE: CT HEAD WITHOUT CONTRAST. HISTORY: trauma COMPARISON: None available. TECHNIQUE: Axial computed tomography images were obtained through the head/brain without intravenous contrast. Radiation dose: Total exam DLP = mGy-cm. This CT exam was performed using one or more of the following dose reduction techniques: Automated exposure control, adjustment of the mA and/or kV according to patient size, and/or use of iterative reconstruction technique. FINDINGS: HEMORRHAGE: No intracranial hemorrhage. BRAIN: No mass effect or edema. No atrophy or chronic microvascular ischemic changes. VENTRICLES: Unremarkable. No hydrocephalus. CALVARIUM: Unremarkable. PARANASAL SINUSES: Unremarkable as visualized. No significant inflammatory changes. MASTOID AIR CELLS: Unremarkable as visualized. No inflammatory changes. OTHER FINDINGS: None. IMPRESSION: Normal CT of the Head.
--- NOTE | 2017-07-05 12:22 | CT ---
PROCEDURE: CT MAXILLOFACIAL BONES WITHOUT CONTRAST HISTORY: trauma COMPARISON: None TECHNIQUE: Contiguous axial CT images of the maxillofacial bones were obtained. Coronal and sagittal reformats were generated. Radiation dose: Total exam DLP = mGy-cm. This CT exam was performed using one or more of the following dose reduction techniques: Automated exposure control, adjustment of the mA and/or kV according to patient size, and/or use of iterative reconstruction technique. FINDINGS: NASAL BONES: Unremarkable. ORBITS: Unremarkable. PARANASAL SINUSES/ MASTOIDS: Clear. MAXILLA: Unremarkable. MANDIBLE/ TEMPOROMANDIBULAR JOINTS: Unremarkable. SKULL BASE: Unremarkable. TEMPORAL BONES: Middle ears and mastoid grossly unremarkable. OTHER FINDINGS: None. IMPRESSION: Unremarkable non contrast enhanced CT of the maxillofacial bones.
== END 2017-07-05 13:32 | disposition home or self-care (01) ==
LOC: H.ER 10:38
DX: S00.83XA Contusion of other part of head, initial encounter (principal); S09.90XA Unspecified injury of head, initial encounter; W01.0XXA Fall on same level from slipping, tripping and stumbling without subsequent striking against object, initial encounter; Y92.89 Other specified places as the place of occurrence of the external cause

== ENCOUNTER 2017-08-25 10:08 | Emergency (ER) | payer MEDICARE, OTHER ==
[2017-08-25 10:08] VITALS: BMI 30.1
[2017-08-25 10:20] VITALS: BP 178/74; PULSE 74; RESP 16; TEMP 98; O2SAT 100
--- NOTE | 2017-08-25 10:59 | ED PDOC ---
HPI: Back Time Seen by Provider: 08/25/17 10:39 Chief Complaint (Nursing): Back Pain Chief Complaint (Provider): LEft back and rib pain x 1 week History Per: Patient History/Exam Limitations: no limitations Onset/Duration Of Symptoms: Days (1 week) Current Symptoms Are (Timing): Still Present Full Body Front + Back: 1 - Rib pain Quality Of Discomfort: Sharp Severity: Severe Pain Scale Rating Of: 9 Additional Complaint(s): Pt reports left sided back and rib pain which began 1 week ago after shoveling snow. Pt was seen by her PMD and given an Rx for rib x-ray. Pt states she was unable to make an appointment and cannot deal with the pain so she came to the ER for x-ray. Pt has been taking motrin which was prescribed by PMD. Past Medical History Reviewed: Historical Data, Nursing Documentation, Vital Signs Vital Signs: Last Vital Signs Temp 98.0 F 08/25/17 10:18 Pulse 74 08/25/17 10:18 Resp 16 08/25/17 10:18 BP 178/74 H 08/25/17 10:18 Pulse Ox 100 08/25/17 10:18 - Medical History PMH: No Chronic Diseases Denies: Anxiety, Bipolar Disorder, Depression, Diabetes, HTN, Hypercholesterolemia, Paranoia, Post Traumatic Stress Disorder, Chronic Kidney Disease, Schizophrenia - Surgical History Surgical History: No Surg Hx - Family History Family History: States: Unknown Family Hx - Living Arrangements Living Arrangements: With Family - Social History Current smoker - smoking cessation education provided: No Alcohol: None Drugs: Denies - Home Medications Home Medications: Ambulatory Orders Medication Instructions Recorded Furosemide [Lasix] 20 mg PO DAILY tab 11/28/16 traMADol [Ultram] 50 mg PO Q6H PRN #15 tab 08/25/17 - Allergies Allergies/Adverse Reactions: Allergies Allergy/AdvReac Type Severity Reaction Status Date / Time No Known Allergies Allergy Verified 01/29/16 08:26 Review of Systems ROS Statement: Except As Marked, All Systems Reviewed And Found Negative Constitutional: Negative for: Fever, Chills Cardiovascular: Negative for: Chest Pain Respiratory: Negative for: Cough, Shortness of Breath Musculoskeletal: Positive for: Back Pain Physical Exam - Reviewed Nursing Documentation Reviewed: Yes Vital Signs Reviewed: Yes - Physical Exam Appears: Positive for: Well, Non-toxic, No Acute Distress Head Exam: Positive for: ATRAUMATIC, NORMAL INSPECTION, NORMOCEPHALIC Skin: Positive for: Normal Color, Warm, DRY Eye Exam: Positive for: Normal appearance ENT: Positive for: Normal ENT Inspection Neck: Positive for: Normal, Painless ROM Cardiovascular/Chest: Positive for: Regular Rate, Rhythm Respiratory: Positive for: Normal Breath Sounds. Negative for: Accessory Muscle Use, Respiratory Distress Gastrointestinal/Abdominal: Positive for: Normal Exam, Other (Tenderness, left ribs ). Negative for: Tenderness Back: Positive for: Normal Inspection Extremity: Positive for: Normal ROM Neurologic/Psych: Positive for: Alert, Oriented - ECG O2 Sat by Pulse Oximetry: 100 Medical Decision Making Medical Decision Making: x-ray normal as read by radiologist. Disposition - Clinical Impression Clinical Impression: Rib pain - Patient ED Disposition Is Patient to be Admitted: No Counseled Patient/Family Regarding: Diagnosis, Need For Followup, Rx Given - Disposition Disposition: Routine/Home Disposition Time: 12:58 Condition: GOOD Prescriptions: traMADol [Ultram] 50 mg PO Q6H PRN #15 tab PRN Reason: Pain Instructions: Musculoskeletal Pain (ED) Forms: [employer] (Vietnamese)
--- NOTE | 2017-08-25 11:19 | RAD ---
PROCEDURE: Radiographs of the Chest and Left Ribs. HISTORY: Pain after shoveling snow 1 week ago COMPARISON: Portable chest 11/25/2016.. TECHNIQUE: Frontal radiograph of the chest and multiple oblique radiographs of the left ribs were obtained. FINDINGS: LEFT RIBS: No fracture or focal lesion visualized. LUNGS: Clear. PLEURA: No pneumothorax or pleural fluid. CARDIOVASCULAR: Normal sized heart. No pulmonary vascular congestion. OTHER FINDINGS: None. IMPRESSION: Unremarkable radiographs of the chest and left ribs. No left rib fracture. No interval acute cardiopulmonary disease appreciated.
== END 2017-08-25 13:41 | disposition home or self-care (01) ==
LOC: H.ER 10:08
DX: R07.82 Intercostal pain (principal); M24.9 Joint derangement, unspecified; Y93.H1 Activity, digging, shoveling and raking

== ENCOUNTER 2018-10-04 20:55 | Emergency (ER) | payer MEDICARE, OTHER ==
[2018-10-04 20:55] VITALS: BMI 30.1
[2018-10-04 20:59] VITALS: RESP 18; O2SAT 98
[2018-10-04] MEDS ORDERED: Sodium Chloride 0.9% 1,000 ML IV STA (21:09)
[2018-10-04] MEDS ORDERED: Sodium Chloride 0.9% 500 ML IV STA (21:51)
[2018-10-04 21:54] LABS: BASO % 0.6 % (0.0-2.0); EOS # 0.1 K/uL (0.0-0.7); EOS % 2.7 % (0.0-4.0); LYMPH # 0.6 K/uL (1.0-4.3); LYMPH % 11.8 % (20.0-40.0); MEAN CELL VOLUME 89.2 fl (81.0-99.0); MEAN CORPUSCULAR HEMOGLOBIN 29.8 pg (27.0-31.0); MEAN CORPUSCULAR HGB CONC 33.4 g/dL (33.0-37.0); MEAN PLATELET VOLUME 9.1 fl (7.2-11.7); MONO # 0.5 K/uL (0.0-0.8); MONO % 10.1 % (0.0-10.0); NEUT # 3.9 K/uL (1.8-7.0); NEUT % 74.8 % (50.0-75.0); RBC 4.69 Mil/uL (3.80-5.20); RED CELL DISTRIBUTION WIDTH 13.3 % (11.5-14.5); WHITE BLOOD COUNT 5.2 K/uL (4.8-10.8)
[2018-10-04 22:05] LABS: ALB/GLOB RATIO 1.1 (1.0-2.1); ALBUMIN 3.5 g/dL (3.5-5.0); ALT/SGPT 23 U/L (9-52); AST/SGOT 18 U/L (14-36); BLOOD UREA NITROGEN 12 mg/dl (7-17); CALCIUM 8.7 mg/dL (8.4-10.2); GFR NON-AFRICAN AMERICAN > 60; LIPASE 68 U/L (23-300)
--- NOTE | 2018-10-04 22:37 | ED PDOC ---
HPI:Nausea, Vomiting, Diarrhea Time Seen by Provider: 10/04/18 21:06 Chief Complaint (Nursing): Abdominal Pain Chief Complaint (Provider): Vomiting, Diarrhea, Abd Pain History Per: Patient History/Exam Limitations: no limitations Onset/Duration Of Symptoms: Days (x1) Current Symptoms Are (Timing): Still Present Additional Complaint(s): 73 year old female with pmhx of HTN, CHF, and arthritis presents to the ED for evaluation of nausea, one episode of non-bilious non-bloody vomiting, and two episodes of non-bloody diarrhea for the past day associated with g eneralized abdominal pain. Her son at bedside notes that yesterday he also had severe diarrhea. Otherwise, patient denies fever, cough, shortness of breath, and chest pain. PMD: Theodoro Past Medical History Reviewed: Historical Data, Nursing Documentation, Vital Signs Vital Signs: Last Vital Signs Temp 99.5 F 10/04/18 20:57 Pulse 90 10/04/18 20:57 Resp 18 10/04/18 20:57 BP 158/85 H 10/04/18 20:57 Pulse Ox 98 10/04/18 20:57 - Medical History PMH: Arthritis, CHF, HTN Denies: Anxiety, Bipolar Disorder, Depression, Diabetes, Hyperchole sterolemia, Paranoia, Post Traumatic Stress Disorder, Chronic Kidney Disease, Schizophrenia - Surgical History Surgical History: No Surg Hx - Family History Family History: States: Unknown Family Hx - Social History Current smoker - smoking cessation education provided: No Alcohol: None Drugs: Denies - Home Medications Home Medications: Ambulatory Orders Medication Instructions Recorded Furosemide [Lasix] 20 mg PO DAILY tab 11/28/16 traMADol [Ultram] 50 mg PO Q6H PRN #15 tab 08/25/17 Dicyclomine [Bentyl] 20 mg PO Q12 PRN #20 tab 10/04/18 Ondansetron ODT [Zofran ODT] 4 mg PO Q6 PRN #16 odt 10/04/18 - Allergies Allergies/Adverse Reactions: Allergies Allergy/AdvReac Type Severity Reaction Status Date / Time No Known Allergies Allergy Verified 10/04/18 20:57 Review of Systems ROS Statement: Except As Marked, All Systems Reviewed And Found Negative Constitutional: Negative for: Fever Cardiovascular: Negative for: Chest Pain Respiratory: Negative for: Cough, Shortness of Breath Gastrointestinal: Positive for: Nausea, Vomiting (x1 episode non-bilious, non- bloody), Abdominal Pain (generalized), Diarrhea (x2 episodes non-bloody) Physical Exam - Reviewed Nursing Documentation Reviewed: Yes Vital Signs Reviewed: Yes - Physical Exam Appears: Positive for: No Acute Distress Head Exam: Positive for: ATRAUMATIC, NORMOCEPHALIC Skin: Positive for: Normal Color, Warm Eye Exam: Positive for: Normal appearance ENT: Positive for: Other (mucous membranes dry) Neck: Positive for: Normal, Painless ROM, Supple Cardiovascular/Chest: Positive for: Regular Rate, Rhythm Respiratory: Positive for: Normal Breath Sounds. Negative for: Respiratory Distress Gastrointestinal/Abdominal: Positive for: Soft, Tenderness (mild diffuse tenderness) Back: Positive for: Normal Inspection Extremity: Positive for: Normal ROM (all extremities) Neurologic/Psych: Positive for: Alert, Oriented (x3). Negative for: Motor/Sensory Deficits - Laboratory Results Result Diagrams: 10/04/18 21:50 10/04/18 21:50 Lab Results: Total Bilirubin 0.9 mg/dl (0.2-1.3) 10/04/18 21:50 AST 18 U/L (14-36) 10/04/18 21:50 ALT 23 U/L (9-52) 10/04/18 21:50 Alkaline Phosphatase 78 U/L (38-126) 10/04/18 21:50 Total Protein 6.6 G/DL (6.3-8.2) 10/04/18 21:50 Albumin 3.5 g/dL (3.5-5.0) 10/04/18 21:50 Globulin 3.2 gm/dL (2.2-3.9) 10/04/18 21:50 Albumin/Globulin Ratio 1.1 (1.0-2.1) 10/04/18 21:50 Lipase 68 U/L (23-300) 10/04/18 21:50 - ECG O2 Sat by Pulse Oximetry: 98 (RA) Pulse Ox Interpretation: Normal Medical Decision Making Medical Decision Making: Time: 2107 Initial Impression: 73 year old female with a diarrheal illness Initial Plan: --EKG --CMP --Lipase --U-dip --CBC with differential --Bentyl 20mg PO --Normal saline IV --Zofran 4mg IV --Blood culture --Accucheck --Urinalysis 00:04 Patient reports marked improvement of symptoms. Labs reviewed no clinically significant abnormalities. Patient is stable for discharge diagnosis is gastroenteritis. Scribe Attestation: Documented by Charlene Kaur, acting as a scribe for Carlos Enrique Nunez MD. Provider Scribe Attestation: All medical record entries made by the Scribe were at my direction and personally dictated by me. I have reviewed the chart and agree that the record accurately reflects my personal performance of the history, physical exam, medical decision making, and the department course for this patient. I have also personally directed, reviewed, and agree with the discharge instructions and disposition. Disposition - Clinical Impression Clinical Impression: Gastroenteritis - Patient ED Disposition Is Patient to be Admitted: No - Disposition Disposition: Routine/Home Disposition Time: 00:04 Condition: STABLE Additional Instructions: XIANG PANDYA, thank you for letting us take care of you today. Your provider was Carlos Enrique Nunez MD and you were treated for ABDOMINAL PAIN. The emergency medical care you received today was directed at your acute symptoms. If you were prescribed any medication, please fill it and take as directed. It may take several days for your symptoms to resolve. Return to the Emergency Department if your symptoms worsen, do not improve, or if you have any other problems. Please contact your doctor or call one of the physicians/clinics you have been referred to that are listed on the Patient Visit Information form that is included in your discharge packet. Bring any paperwork you were given at discharge with you along with any medications you are taking to your follow up visit. Our treatment cannot replace ongoing medical care by a primary care provider outside of the emergency department. Thank you for allowing the [facility] team to be part of your care today. If you had an X-Ray or CT scan: A Radiologist will review the ED reading if any change in treatment is needed we will contact you. If you had a blood, urine, or wound culture: It will take several days for the results, if any change in treatment is needed we will contact you. If you had an STI test: It will take 48 hours for the results. Please call after 1 week if you have not heard back. Prescriptions: Dicyclomine [Bentyl] 20 mg PO Q12 PRN #20 tab PRN Reason: abdominal pain/diarrhea Ondansetron ODT [Zofran ODT] 4 mg PO Q6 PRN #16 odt PRN Reason: Nausea/Vomiting Instructions: Gastroenteritis (ED) Forms: [employer] (Latvian)
[2018-10-05 00:24] LABS: SQUAMOUS EPITHIAL < 1 /hpf (0-5); URINE BILIRUBIN NEGATIVE (NEGATIVE); URINE BLOOD NEGATIVE (NEGATIVE); URINE CLARITY SLIGHTY-CLOUDY (Clear); URINE COLOR YELLOW (YELLOW); URINE GLUCOSE (UA) NEG (NEGATIVE); URINE LEUKOCYTE ESTERASE NEG Leu/uL (Negative); URINE PROTEIN NEGATIVE (NEGATIVE)
[2018-10-05 02:51] VITALS: BP 130/70; PULSE 88; TEMP 98.7
--- NOTE | 2018-10-05 09:00 | CARD ---
APPROVED REPORT Date of service: 10/04/2018 EKG Measurement Heart [id number] <Conclusion> Normal sinus rhythm Incomplete RBBB Otherwise normal ECG
== END 2018-10-05 00:20 | disposition home or self-care (01) ==
LOC: H.ER 20:55
DX: K52.9 Noninfective gastroenteritis and colitis, unspecified (principal); M19.90 Unspecified osteoarthritis, unspecified site; I11.0 Hypertensive heart disease with heart failure
CPT/HCPCS: 80053; 81003; 82948; 83690; 85025; 87040; 93005; 96374; 99284; J2405; J7030